=== PATIENT | male | born 1960 | race Caucasian/White ===

== ENCOUNTER 2018-05-06 10:41 | Day surgery (SDC) | payer BC ==
[~2018-05-06 10:41] MED LIST: CEFAZOLIN 2 Gram 2 GM/50 ML BAG IVPB ONE; CELECOXIB 100 MG CAPSULE PO ONE; FAMOTIDINE 20MG TABLET PO ONE; MECLIZINE 25 MG TABLET PO ONE; METOCLOPRAMIDE 10 MG TABLET PO ONE; VANCOMYCIN HCL 1,000 MG in DEXTROSE 5 % IN WATER 250 ML IVPB ONE
[2018-05-06] MEDS ORDERED: DEXAMETHASONE 4 MG/ML 1ML VIAL IVP ONE (10:42)
[2018-05-06] MEDS ORDERED: 0.9 % SODIUM CHLORIDE 10 ML VIAL IVP ONE (10:42)
[2018-05-06] MEDS ORDERED: PROPOFOL 10 MG/ML VIAL IV ONE (10:42)
[2018-05-06] MEDS ORDERED: TRANEXAMIC ACID 1,000 MG/10 ML ML IV ONE (10:42)
[2018-05-06] MEDS ORDERED: LIDOCAINE 2% MDV (20MG/ML) 20ML VIAL IV ONE (10:42)
[2018-05-06] MEDS ORDERED: KETOROLAC 30 MG/ML VIAL IVP ONE (10:42)
[2018-05-06] MEDS ORDERED: MORPHINE SULFATE 10 MG/ML VIAL IVP ONE (10:42)
[2018-05-06] MEDS ORDERED: TRANEXAMIC ACID 1,000 MG in 0.9 % SODIUM CHLORIDE 100ML 100 ML IV ONE (10:42)
[2018-05-06] MEDS ORDERED: FENTANYL PF 100MCG/2ML VIAL IV ONE (10:42)
[2018-05-06] MEDS ORDERED: MIDAZOLAM HCL 2MG/2ML VIAL IV ONE (10:42)
[2018-05-06] MEDS ORDERED: ROPIVACAINE HCL (NAROPIN) /PF 5MG/ML 20ML VIAL IV ONE (10:42)
[2018-05-06] MEDS ORDERED: BUPIVACAINE 0.5% W/EPI MPF 30 ML VIAL IVP ONE (10:42)
[2018-05-06] MEDS ORDERED: SUFENTANIL CITRATE 50 MCG/ML AMPUL IV ONE (10:42)
[2018-05-06] MEDS ORDERED: **ER** KETAMINE HCL 500MG/10ML VIAL IV ONE (10:42)
[2018-05-06 11:53] LABS: ABO GROUP O; RH TYPE NEGATIVE
[2018-05-06 11:54] LABS: ANTIBODY SCREEN NEGATIVE (NEGATIVE)
[2018-05-06] MEDS ORDERED: TRAMADOL HCL 50 MG TABLET PO PRN (14:45)
[2018-05-06] MEDS ORDERED: ACETAMINOPHEN 325 MG TAB PO PRN (14:45)
[2018-05-06] MEDS ORDERED: ONDANSETRON HCL IV 4 MG/2 ML VIAL IVP PRN (14:45)
[2018-05-06] MEDS ORDERED: ZOLPIDEM TARTRATE 5 MG TABLET PO PRN (14:45)
[2018-05-06] MEDS ORDERED: NALOXONE 0.4 MG/1 ML VIAL IVP PRN (14:45)
[2018-05-06] MEDS ORDERED: ACETAMINOPHEN W/ CODEINE 300MG/60MG TABLET PO PRN ×2 (14:45)
[2018-05-06] MEDS ORDERED: BISACODYL 10 MG SUPP RC PRN (14:45)
[2018-05-06] MEDS ORDERED: AL HYDROX/MAG HYDROX 30ML UD PO PRN (14:45)
[2018-05-06] MEDS ORDERED: DIPHENHYDRAMINE HCL 25 MG CAPSULE PO PRN (14:45)
[2018-05-06] MEDS ORDERED: MAGNESIUM HYDROXIDE 30 ML UDC PO PRN (14:45)
[2018-05-06] MEDS ORDERED: KETOROLAC 30 MG/ML VIAL IVP PRN ×2 (14:45)
[2018-05-06] MEDS ORDERED: HYDROMORPHONE HCL 2 MG/ML VIAL IM PRN (14:45)
[2018-05-06] MEDS ORDERED: HYDROCODONE/APAP 10/325 TABLET PO PRN (14:45)
[2018-05-06] MEDS ORDERED: TRIAMCINOLONE ACET 0.1% CREAM 15G TUBE TOP PRN (15:10)
[2018-05-06] MEDS ORDERED: DEXTROSE 5 % AND 0.9 % NACL 1,000 ML IV PRN (15:30)
[2018-05-06] MEDS: GABAPENTIN 100 MG CAPSULE PO SCH ×2 (16:40→21:29)
--- NOTE | 2018-05-06 18:05 | Rehab Evaluation ---
Patient Information - Patient Information Diagnosis: R knee OA Ordered Treatment: PT Evaluate and Treat Status: Initial Evaluation Surgery: Yes (R TKA) Date of Surgery: 05/06/18 Past Medical/Surgical Hx: PAST MEDICAL/SURGICAL HISTORY Past Surgical History gastric sleeve cardiac stents x's 3 2002 and 2005 right knee left knee scope x's 2 c scope PMH - Respiratory Hx Respiratory Disorders Yes Comment: sinus congestion ears congested PMH - Cardiovascular Hx Cardiovascular Disorders Yes Hx Abnormal EKG Yes Hx Cardiac Catheterization Yes Hx Deep Vein Thrombosis Yes: left knee after knee scope 10 yrs ago Hx Edema Yes: occassionally Hx Heart Attack Yes: x's 2 2002 and 2004 Hx Hypertension Yes: on meds good control Hx Irregular Heartbeat Yes: a fib on and off on eliquis, recently stopped drinking and this has helped Hx Palpitations Yes Hx Vascular Disease Yes: LE's Hx Coronary Artery Disease Yes Hx Coronary Stent Yes: x's 3 2002 and 2004 Exercise Tolerance Fair Comment: due to knee pain PMH - Neuro Hx Neurological Disorders Yes Hx Dizziness Yes: off balance when sinuses are congested Hx Headaches Yes: occassionally PMH - GI Hx Gastrointestinal Disorders Yes Hx Weight Loss/Weight Gain stable now. had 150 lb loss w sleeve 2-3 yrs ago Hx Cirrhosis Yes: possibly early stage of Cirrhosis PMH - Hx Genitourinary Disorders Yes Hx Kidney Stones Yes PMH - Endocrine Hx Endocrine Disorders Yes Hx Diabetes Yes: before sleeve no problems now A1C 4.7 PMH - Musculoskeletal Hx Musculoskeletal Disorders Yes Hx Arthritis Yes: right knee Hx Gout Yes: controlled with meds PMH - Psych Hx Psychiatric Problems Yes Hx Depression Yes: in past PMH - Hematology/Oncology Hx Hematology/Oncology Yes Disorders Hx Anemia Yes Hx Bruising Yes: on Eliquis Premorbid Status: Detail (The patient was independent with all mobility prior to surgery.) Social History: Detail (The patient lives alone in an apartment without stairs. The patient's bathroom is equipped with a walk in shower and a standard toilet, however patient states he is going to aquire a riser seat. The patient has a walker with wheels and crutches.) Precautions: [place], [place], Other (WBAT on the R LE) - Time With Patient Total Time Spent With Patient (Min): 30 Treatment Procedures: Detail (Initial Evaluation and Gait training) Subjective Information - Subjective Information Per Patient (The patient has no complaints of pain. The patient had some complaints of lightheadedness which is typical for him.) Objective Data - Mental Status Patient Orientation: Oriented x3 - Visual Perception Appears within normal limits for therapeutic activities - ROM Not within normal limits (The patient's R knee AROM is limited as to be expected following surgery. All other LE AROM is WNL.) - Strength/Tone Not within normal limits (The patient's R LE strength was not tested secondary to s/p, however strength is functional ie: patient is able to complete a SLR. All other LE strength is functional.) - Bed Mobility Independent (supine to and from sit and scooting.) - Transfers Independent (sit to and from stand transfer.) - Balance Balance Sitting: Good Balance Standing: Good - Sensation Intact - Gait Detail (The patient ambulated with front wheeled walker a distance of 40 feet x 1 WBAT on the R LE with supervision for safety only.) Therapy Assessment - Therapy Assessment Detail (The patient was independent with bed mobility, transfers and supervision only with ambulation. Feel patient will progress well with mobility. ) Problem List - Problem List Physical Therapy Problem List: Detail (Decreased R knee AROM and decreased R LE strength as to be expected following surgery.) Goals - Goals Physical Therapy Goals: 1) The patient will be independent with TKA HEP. 2) The patient will ambulate with front wheeled walker 100 feet independently. 3) The patient will be aware of proper technique of stair climbing Plan - Plan Physical Therapy Plan: PT for 1 -2 sessions for gait training and instruction in HEP.
[2018-05-06] MEDS: APIXABAN 5MG TABLET PO SCH (18:27)
[2018-05-06] MEDS: HYDROCODONE/APAP 10/325 TABLET PO PRN (20:13)
[2018-05-06] MEDS: DOCUSATE SODIUM 100 MG CAPSULE PO SCH (21:29)
[2018-05-06] MEDS: ALLOPURINOL 100 MG TAB PO SCH (21:29)
[2018-05-07] MEDS: HYDROCODONE/APAP 10/325 TABLET PO PRN ×3 (00:22→10:39)
[2018-05-07] MEDS ORDERED: VANCOMYCIN HCL 1,000 MG in DEXTROSE 5 % IN WATER 250 ML IVPB ONE ×2 (05:30)
[2018-05-07 06:36] LABS: HEMATOCRIT 35.8 % (42.0-52.0); HEMOGLOBIN 11.5 gm/dl (14.0-18.0)
[2018-05-07 06:47] LABS: BLOOD UREA NITROGEN 21 mg/dL (6-20); CREATININE 1.3 mg/dL (0.7-1.2); EST GLOMERULAR FILTRATION RATE > 60 mL/min; GLUCOSE,RANDOM 150 mg/dL (74-109)
--- NOTE | 2018-05-07 08:26 | Rehab Evaluation ---
Patient Information - Patient Information Diagnosis: R knee OA Ordered Treatment: OT Evaluate and Treat Status: Initial Evaluation Surgery: Yes (R TKA) Date of Surgery: 05/06/18 Past Medical/Surgical Hx: PAST MEDICAL/SURGICAL HISTORY Past Surgical History gastric sleeve cardiac stents x's 3 2002 and 2005 right knee left knee scope x's 2 c scope PMH - Respiratory Hx Respiratory Disorders Yes Comment: sinus congestion ears congested PMH - Cardiovascular Hx Cardiovascular Disorders Yes Hx Abnormal EKG Yes Hx Cardiac Catheterization Yes Hx Deep Vein Thrombosis Yes: left knee after knee scope 10 yrs ago Hx Edema Yes: occassionally Hx Heart Attack Yes: x's 2 2002 and 2004 Hx Hypertension Yes: on meds good control Hx Irregular Heartbeat Yes: a fib on and off on eliquis, recently stopped drinking and this has helped Hx Palpitations Yes Hx Vascular Disease Yes: LE's Hx Coronary Artery Disease Yes Hx Coronary Stent Yes: x's 3 2002 and 2004 Exercise Tolerance Fair Comment: due to knee pain PMH - Neuro Hx Neurological Disorders Yes Hx Dizziness Yes: off balance when sinuses are congested Hx Headaches Yes: occassionally PMH - GI Hx Gastrointestinal Disorders Yes Hx Weight Loss/Weight Gain stable now. had 150 lb loss w sleeve 2-3 yrs ago Hx Cirrhosis Yes: possibly early stage of Cirrhosis PMH - Hx Genitourinary Disorders Yes Hx Kidney Stones Yes PMH - Endocrine Hx Endocrine Disorders Yes Hx Diabetes Yes: before sleeve no problems now A1C 4.7 PMH - Musculoskeletal Hx Musculoskeletal Disorders Yes Hx Arthritis Yes: right knee Hx Gout Yes: controlled with meds PMH - Psych Hx Psychiatric Problems Yes Hx Depression Yes: in past PMH - Hematology/Oncology Hx Hematology/Oncology Yes Disorders Hx Anemia Yes Hx Bruising Yes: on Eliquis Premorbid Status: Detail (The patient was independent with all mobility, ADLs and IADLs prior to surgery. His brother is able to help if needed but he does not live close by.) Social History: Detail (The patient lives alone in a first floor apartment without stairs. The patient's bathroom is equipped with a walk in shower and a standard toilet, however patient states he is going to acquire a riser seat and shower seat. The patient has a walker with wheels and crutches.) Precautions: [place], Fall, Other (WBAT on the R LE) - Time With Patient Total Time Spent With Patient (Min): 40 Treatment Procedures: Detail (OT eval low complexity) Subjective Information - Subjective Information Per Patient Objective Data - Pain Pain Present: Yes (3-10/22) - Mental Status Patient Orientation: Oriented x3 - Visual Perception Appears within normal limits for therapeutic activities - ROM Within normal limits (Imtiaz UE AROM WNL) - Strength/Tone Within normal limits (Imtiaz UE strength WNL) - Coordination Appears within normal limits for therapeutic activities - Bed Mobility Independent (Ind with supine to sit) - Transfers Independent (Ind with sit to stand from EOB) - Balance Balance Sitting: Good Balance Standing: Good - Sensation Intact - Gait Detail (Pt ambulating in room with 2 wheeled walker Indly.) - ADL's/IADL's Detail (Pt educated and able to demonstrate learning of modified LE dressing techniques including doffing slipper socks and donning pants, socks and tennis shoes. Pt educated and verbalized learning of kitchen and shower safety and modifications as well as technique for donning jhoan socks.) Therapy Assessment - Therapy Assessment Detail (Pt is Ind with modified techniques for LE dressing.) Problem List - Problem List Physical Therapy Problem List: Detail (Decreased R knee AROM and decreased R LE strength as to be expected following surgery.) Occupational Therapy Problem List: Detail (No current IP OT problems identified. ) Goals - Goals Physical Therapy Goals: 1) The patient will be independent with TKA HEP. 2) The patient will ambulate with front wheeled walker 100 feet independently. 3) The patient will be aware of proper technique of stair climbing Occupational Therapy Goals: No current IP OT goals identified. Prognosis - Prognosis Good Plan - Plan Physical Therapy Plan: PT for 1 -2 sessions for gait training and instruction in HEP. Occupational Therapy Plan: No further IP OT recommended. Thank you for this referral.
[2018-05-07] MEDS: DOCUSATE SODIUM 100 MG CAPSULE PO SCH (09:33)
[2018-05-07] MEDS: APIXABAN 5MG TABLET PO SCH (09:34)
[2018-05-07] MEDS: GABAPENTIN 100 MG CAPSULE PO SCH (09:35)
[2018-05-07] MEDS: ALLOPURINOL 100 MG TAB PO SCH (09:36)
[2018-05-07] MEDS ORDERED: MULTIVITAMINS/MINERALS TABLET PO SCH (10:00)
[2018-05-07] MEDS ORDERED: THIAMINE MONONITRATE 100 MG TABLET PO SCH (10:00)
[2018-05-07] MEDS ORDERED: FOLIC ACID 1 MG TABLET PO SCH (10:00)
[2018-05-07] MEDS ORDERED: ASPIRIN 81 MG TABEC PO SCH (10:00)
[2018-05-07] MEDS ORDERED: LISINOPRIL 20 MG TABLET PO SCH (10:00)
[2018-05-07] MEDS ORDERED: METOPROLOL SUCC 50 MG TABLET PO SCH (10:00)
[2018-05-07] MEDS ORDERED: FERROUS SULFATE 325 MG TAB PO SCH (10:00)
--- NOTE | 2018-05-07 11:33 | Physical Therapy Tx Note ---
Physical Therapy Tx Note - Treatment Note Tolerated: Good Total Time Spent With Patient: 15 Physical Therapy Tx Note: Detail (The patient was in bed and declined stairs. The patient has no stairs to climb to his apt. The patient was able to verbalize the proper technique of stair climbing. The patient declined to ambulate this am, stating he had just ambulated with nursing staff. The patient demonstrated safe ambulation technique on 05/06/18. The patient complete the following TKA exercises: supine heel slides, ankle pumps, quad sets, gluteal sets, hamstring sets, SLR. The patient is discharged from inpatient PT and is to continue with Home PT.) Physical Therapy Problem List: Detail (Decreased R knee AROM and decreased R LE strength as to be expected following surgery.) Physical Therapy Goals: GOALS MET: 1) The patient will be independent with TKA HEP. 2) The patient will ambulate with front wheeled walker 100 feet independently. 3) The patient will be aware of proper technique of stair climbing Physical Therapy Plan: Patient is discharged from inpatient PT and is to continue with Home PT.
--- NOTE | 2018-05-07 16:30 | Operative Note ---
DATE OF SERVICE: 05/06/2018. DATE OF SURGERY: 05/06/2018. PREOPERATIVE DIAGNOSIS: End-stage arthrosis of the right knee. POSTOPERATIVE DIAGNOSIS: End-stage arthrosis of the right knee. OPERATION: Cemented right total knee arthroplasty using [employer] Do II components, with a size 7 Oxinium femur, a size 7 stemmed tibial baseplate, a 9 mm lipped tibial insert, and a 35 mm all plastic patella. Staff Surgeon: Vladislav Rodriges MD. Anesthesia: General. PREPARATION: ChloraPrep. INDIVIDUAL CONSIDERATIONS: None. PROCEDURE: Patient was taken to the operating room, placed supine on the operating table. He had successful induction with general anesthetic. His right lower extremity was prepped and draped in the usual fashion.Patient had a midline approach to the knee. Limb was elevated. Tourniquet was inflated to 250 mmHg. Sharp dissection carried down through skin and subcutaneous tissue. Small veins were coagulated with a Bovie. A medial arthrotomy was performed, patella was everted, and knee was flexed. He had exposed bone in the medial and patellofemoral compartments with large osteophytes Fat pad was resected, ACL was sacrificed, provisional anterior meniscectomy was performed, and the capsule was released from the medial proximal tibia. The initial femoral commercial pilot hole was then made freehand. The intramedullary femoral cutting jig was placed. It was cut in 7.0 degrees of valgus and adjusted for rotation and secured with pins for a 10 mm resection. The initial transverse cut was then made. Skid guide was placed for the anterior and posterior commercial pilot holes. It was found that a size 7 would be appropriate. The anterior and posterior cuts, followed by chamfer cuts were made, osteophytes were removed, and a size 7 trial was placed and found to fit well. Tibia was brought forward, and remainder of the meniscal remnants were removed with a Bovie. The extraarticular tibial cutting jig was placed. It was cut in neutral with a 3 degree AP slope. It was set for a 9 mm resection keyed off the high lateral side, secured with pins. When cutting the tibia, care was taken to adjust for rotation and to preserve the PCL insertion on the tibia. After cutting the tibia, large osteophytes were removed, and it was found that a size 7 would be appropriate. This was adjusted for rotation and secured with pins. With the 9 mm trial, which was lipped, and the femoral trial, there were excellent motion and stability. Ligamentous balance and rotational alignment were thought to be normal. The femoral commercial pilot holes were then impacted, and then the tibial keel stamp was impacted, and these trial components were removed. Patient had a very thick patella, and roughly 9 mm of bone were removed freehand, and I was easily able to fit a 35 patella, and the 3 commercial pilot holes were then drilled. The tourniquet was let down briefly to get bleeders posteriorly, then placed back up again. After thorough pulsatile Betadine and saline irrigation, the bony surfaces were dried. A size 7 stemmed tibial baseplate was cemented into place, followed by impaction of the 9 mm lipped tibial insert, followed by cementing in the size 7 Oxinium femur, followed by cementing of the 35 mm patella. Implant surfaces were compressed, excess cement was removed, and after the cement had set, there were excellent motion and stability. Ligamentous balance, rotational alignment, and patellofemoral tracking were normal. No lateral release was required. The tourniquet was let down. Hemostasis was obtained with a Bovie. The capsule was then closed with a running #2 Quill. Subcu was closed in layers with running 0 Quill. Skin was closed with jeannette. I did infiltrate the skin and subcutaneous tissue and periosteum with 30 mL of 0.5% Marcaine with epinephrine prior to closure, and after closure I injected the knee with 30 mL of saline mixed with 1 g of tranexamic acid. Patient did receive 1 g of tranexamic acid IV preop. Patient tolerated the procedure well. Needle and sponge counts were correct. Estimated blood loss was minimal, and he was taken back to recovery in fair condition. There were no complications. [facility]
== END 2018-05-07 14:14 | disposition home health service (06) ==
LOC: SUR 10:41 → MEDSURG 15:46 → SUR 05-07 14:14
PROVIDERS: ATTEND Orthopaedic Surgery
DX: M17.11 Unilateral primary osteoarthritis, right knee (principal); I10 Essential (primary) hypertension; I48.91 Unspecified atrial fibrillation; Z79.01 Long term (current) use of anticoagulants; I25.10 Atherosclerotic heart disease of native coronary artery without angina pectoris; I25.2 Old myocardial infarction; K70.30 Alcoholic cirrhosis of liver without ascites; Z86.718 Personal history of other venous thrombosis and embolism
CPT/HCPCS: 27447; 01402; 64447; 85018; 85014; 80048; 86900; 86901; 86850; 93005; J1885 ×2; J3370; J3010; J0690; J3490 ×4; J2795; J2270; G8978; G8979 ×2; G8980; G8987; G8988; G8989; 76942; 97110; J7042; J7060

== ENCOUNTER 2018-06-24 06:54 | Day surgery (SDC) | payer BC ==
[2018-06-24] MEDS ORDERED: 0.9 % SODIUM CHLORIDE 10 ML VIAL IVP ONE (06:55)
[2018-06-24] MEDS ORDERED: SUFENTANIL CITRATE 50 MCG/ML AMPUL IV ONE (06:55)
[2018-06-24] MEDS ORDERED: LIDOCAINE 2% MDV (20MG/ML) 20ML VIAL IV ONE (06:55)
[2018-06-24] MEDS ORDERED: ONDANSETRON HCL IV 4 MG/2 ML VIAL IVP ONE (06:55)
[2018-06-24] MEDS ORDERED: SEVOFLURANE 250 ML INH ONE (06:55)
[2018-06-24] MEDS ORDERED: MIDAZOLAM HCL 2MG/2ML VIAL IV ONE (06:55)
[2018-06-24] MEDS ORDERED: BUPIVACAINE 0.5% W/EPI MPF 30 ML VIAL IVP ONE (06:55)
[2018-06-24] MEDS ORDERED: KETOROLAC 30 MG/ML VIAL IVP ONE (06:55)
[2018-06-24] MEDS ORDERED: PROPOFOL 10 MG/ML VIAL IV ONE (06:55)
[2018-06-24] MEDS ORDERED: TRANEXAMIC ACID 1,000 MG/10 ML ML IV ONE (06:55)
[2018-06-24] MEDS ORDERED: HYDROMORPHONE HCL 2 MG/ML VIAL IV ONE (06:55)
[2018-06-24 08:10] LABS: ABO GROUP O; ANTIBODY SCREEN NEGATIVE (NEGATIVE); RH TYPE NEGATIVE
[2018-06-24] MEDS ORDERED: ACETAMINOPHEN W/ CODEINE 300MG/60MG TABLET PO PRN ×2 (11:09)
[2018-06-24] MEDS ORDERED: KETOROLAC 30 MG/ML VIAL IVP PRN ×2 (11:09)
[2018-06-24] MEDS ORDERED: ZOLPIDEM TARTRATE 5 MG TABLET PO PRN (11:09)
[2018-06-24] MEDS ORDERED: HYDROCODONE/APAP 10/325 TABLET PO PRN (11:09)
[2018-06-24] MEDS ORDERED: BISACODYL 10 MG SUPP RC PRN (11:09)
[2018-06-24] MEDS ORDERED: MAGNESIUM HYDROXIDE 30 ML UDC PO PRN (11:09)
[2018-06-24] MEDS ORDERED: ACETAMINOPHEN 325 MG TAB PO PRN (11:09)
[2018-06-24] MEDS ORDERED: AL HYDROX/MAG HYDROX 30ML UD PO PRN (11:09)
[2018-06-24] MEDS ORDERED: DIPHENHYDRAMINE HCL 25 MG CAPSULE PO PRN (11:09)
[2018-06-24] MEDS ORDERED: ONDANSETRON HCL IV 4 MG/2 ML VIAL IVP PRN (11:09)
[2018-06-24] MEDS ORDERED: HYDROMORPHONE HCL 2 MG/ML VIAL IM PRN (11:09)
[2018-06-24] MEDS ORDERED: NALOXONE 0.4 MG/1 ML VIAL IVP PRN (11:09)
[2018-06-24] MEDS ORDERED: TRIAMCINOLONE ACET 0.1% CREAM 15G TUBE TOP PRN (12:16)
--- NOTE | 2018-06-24 14:10 | Rehab Evaluation ---
Patient Information - Patient Information Diagnosis: L knee OA Ordered Treatment: PT Evaluate and Treat Status: Initial Evaluation Surgery: Yes (L TKA) Date of Surgery: 06/24/18 Past Medical/Surgical Hx: PAST MEDICAL/SURGICAL HISTORY Past Surgical History RTKA 05-06-18 gastric sleeve cardiac stents x's 3 2002 and 2005 right knee left knee scope x's 2 c scope PMH - Respiratory Hx Respiratory Disorders Yes Comment: sinus congestion ears congested PMH - Cardiovascular Hx Cardiovascular Disorders Yes Hx Abnormal EKG Yes Hx Cardiac Catheterization Yes Hx Deep Vein Thrombosis Yes: left knee after knee scope 10 yrs ago Hx Edema Yes: occassionally Hx Heart Attack Yes: x's 2 2002 and 2004 Hx Hypertension Yes: on meds good control Hx Irregular Heartbeat Yes: a fib on and off on eliquis, recently stopped drinking and this has helped Hx Palpitations Yes Hx Vascular Disease Yes: LE's Hx Coronary Artery Disease Yes Hx Coronary Stent Yes: x's 3 2002 and 2004 Exercise Tolerance Fair Comment: due to knee pain PMH - Neuro Hx Neurological Disorders Yes Hx Dizziness Yes: off balance when sinuses are congested Hx Headaches Yes: occassionally PMH - GI Hx Gastrointestinal Disorders Yes Hx Weight Loss/Weight Gain stable now. had 150 lb loss w sleeve 2-3 yrs ago Hx Cirrhosis Yes: possibly early stage of Cirrhosis PMH - Hx Genitourinary Disorders Yes Hx Kidney Stones Yes PMH - Endocrine Hx Endocrine Disorders Yes Hx Diabetes Yes: before sleeve no problems now A1C 4.7 PMH - Musculoskeletal Hx Musculoskeletal Disorders Yes Hx Arthritis Yes: left knee Hx Gout Yes: controlled with meds PMH - Psych Hx Psychiatric Problems Yes Hx Depression Yes: in past PMH - Hematology/Oncology Hx Hematology/Oncology Yes Disorders Hx Anemia Yes Hx Bruising Yes: on Eliquis Premorbid Status: Detail (The patient was independent with mobility prior to surgery.) Social History: Detail (The patient lives alone in a first floor apartment with no steps. The patient's bathroom is equipped with a walk in shower and a standard height toilet with riser seat. The patient has a front wheeled walker and standard cane.) Precautions: [place], Fall, Other (WBAT on the L LE.) - Time With Patient Total Time Spent With Patient (Min): 30 Treatment Procedures: Detail (Initial Evaluation and gait training) Subjective Information - Subjective Information Per Patient (The patient has no complaints but complains of pressure.) Objective Data - Mental Status Patient Orientation: Oriented x3 - Visual Perception Appears within normal limits for therapeutic activities - ROM Not within normal limits (The patient's L knee AROM is limited as to be expected following TKA surgery. All other AROM is WNL.) - Strength/Tone Not within normal limits (The patient's L LE strength was not tested secondary to s/p surgery however strength was functional ie: the patient was able to complete a SLR. The patient's R LE strength was functional.) - Bed Mobility Independent (The patient was independent with supine to and from sit transfer.) - Transfers Independent (The patient was independent with sit to and from stand transfer.) - Balance Balance Sitting: Good Balance Standing: Good - Gait Detail (The patient ambulated with front wheeled walker WBAT on L LE a distance of 48 feet x 1 with CG/supervision of 1 for safety only.) Therapy Assessment - Therapy Assessment Detail (The patient was independent with bed mobility and transfers and required supervision for safety only. Feel the patient will progress well with mobility.) Problem List - Problem List Physical Therapy Problem List: Detail (1) Decreased L knee AROM 2) Decreased L LE strength) Goals - Goals Physical Therapy Goals: 1) The patient will be independent with TKA HEP. 2) The patient will demonstrate good understanding of proper stair climbing technique
[2018-06-24] MEDS: HYDROCODONE/APAP 10/325 TABLET PO PRN ×2 (16:48→20:56)
[2018-06-24] MEDS: GABAPENTIN 100 MG CAPSULE PO SCH ×2 (16:48→21:29)
[2018-06-24] MEDS: CEFAZOLIN 2 Gram 2 GM/50 ML BAG IVPB SCH (16:51)
[2018-06-24] MEDS: ALLOPURINOL 100 MG TAB PO SCH (21:29)
[2018-06-24] MEDS: APIXABAN 5MG TABLET PO SCH (21:29)
[2018-06-24] MEDS: VANCOMYCIN HCL 1,000 MG in DEXTROSE 5 % IN WATER 250 ML IVPB SCH ×2 (21:30)
[2018-06-24] MEDS: DOCUSATE SODIUM 100 MG CAPSULE PO SCH (21:30)
[2018-06-24] MEDS: POTASSIUM CHLORIDE/D5-0.9%NACL 20 MEQ/1,000 ML BAG IV SCH ×2 (23:52→23:55)
[2018-06-25] MEDS: CEFAZOLIN 2 Gram 2 GM/50 ML BAG IVPB SCH ×2 (01:20→10:58)
[2018-06-25] MEDS: HYDROCODONE/APAP 10/325 TABLET PO PRN ×4 (01:29→14:15)
[2018-06-25 06:36] LABS: HEMATOCRIT 31.8 % (42.0-52.0)
[2018-06-25 06:51] LABS: BLOOD UREA NITROGEN 15 mg/dL (6-20); CREATININE 0.9 mg/dL (0.7-1.2); EST GLOMERULAR FILTRATION RATE > 60 mL/min; GLUCOSE,RANDOM 138 mg/dL (74-109)
--- NOTE | 2018-06-25 08:13 | Rehab Evaluation ---
Patient Information - Patient Information Diagnosis: L knee OA Ordered Treatment: OT Evaluate and Treat Status: Initial Evaluation Surgery: Yes (L TKA) Date of Surgery: 06/24/18 Past Medical/Surgical Hx: PAST MEDICAL/SURGICAL HISTORY Past Surgical History RTKA 05-06-18 gastric sleeve cardiac stents x's 3 2002 and 2005 right knee left knee scope x's 2 c scope PMH - Respiratory Hx Respiratory Disorders Yes Comment: sinus congestion ears congested PMH - Cardiovascular Hx Cardiovascular Disorders Yes Hx Abnormal EKG Yes Hx Cardiac Catheterization Yes Hx Deep Vein Thrombosis Yes: left knee after knee scope 10 yrs ago Hx Edema Yes: occassionally Hx Heart Attack Yes: x's 2 2002 and 2004 Hx Hypertension Yes: on meds good control Hx Irregular Heartbeat Yes: a fib on and off on eliquis, recently stopped drinking and this has helped Hx Palpitations Yes Hx Vascular Disease Yes: LE's Hx Coronary Artery Disease Yes Hx Coronary Stent Yes: x's 3 2002 and 2004 Exercise Tolerance Fair Comment: due to knee pain PMH - Neuro Hx Neurological Disorders Yes Hx Dizziness Yes: off balance when sinuses are congested Hx Headaches Yes: occassionally PMH - GI Hx Gastrointestinal Disorders Yes Hx Weight Loss/Weight Gain stable now. had 150 lb loss w sleeve 2-3 yrs ago Hx Cirrhosis Yes: possibly early stage of Cirrhosis PMH - Hx Genitourinary Disorders Yes Hx Kidney Stones Yes PMH - Endocrine Hx Endocrine Disorders Yes Hx Diabetes Yes: before sleeve no problems now A1C 4.7 PMH - Musculoskeletal Hx Musculoskeletal Disorders Yes Hx Arthritis Yes: left knee Hx Gout Yes: controlled with meds PMH - Psych Hx Psychiatric Problems Yes Hx Depression Yes: in past PMH - Hematology/Oncology Hx Hematology/Oncology Yes Disorders Hx Anemia Yes Hx Bruising Yes: on Eliquis Premorbid Status: Detail (The patient was independent with mobility, home mgmt, meal prep and laundry prior to surgery.) Social History: Detail (The patient lives alone in a first floor apartment with no steps. The patient's bathroom is equipped with a walk in shower and a standard height toilet with riser seat. The patient has a front wheeled walker and standard cane.) Precautions: [place], Fall, Other (WBAT on the L LE.) - Time With Patient Total Time Spent With Patient (Min): 45 Treatment Procedures: Detail (OT eval low complexity) Subjective Information - Subjective Information Per Patient Objective Data - Pain Pain Present: Yes (11/21) - Mental Status Patient Orientation: Oriented x3 - Visual Perception Appears within normal limits for therapeutic activities - ROM Within normal limits (Imtiaz UE AROM WNL) - Strength/Tone Within normal limits (Imtiaz UE strength WNL) - Coordination Appears within normal limits for therapeutic activities - Bed Mobility Independent (Ind with supine to sit and sit to supine) - Transfers Independent (Ind with sit to stand from EOB) - Balance Balance Sitting: Good Balance Standing: Good - Sensation Intact - ADL's/IADL's Detail (Reviewed modified LE dressing techniques and pt able to demonstrate Ind with doffing slipper socks and donning pants, socks and tennis shoes. Reviewed kitchen and shower safety and modifications, pt verbalizes understanding.) Therapy Assessment - Therapy Assessment Detail (Pt is Ind with modified LE dressing techniques) Problem List - Problem List Physical Therapy Problem List: Detail (1) Decreased L knee AROM 2) Decreased L LE strength) Occupational Therapy Problem List: Detail (No current IP OT problems identified. ) Goals - Goals Physical Therapy Goals: 1) The patient will be independent with TKA HEP. 2) The patient will demonstrate good understanding of proper stair climbing technique Occupational Therapy Goals: No current IP OT goals identified. Prognosis - Prognosis Good Plan - Plan Occupational Therapy Plan: No further IP OT recommended. Thank you for this referral.
[2018-06-25] MEDS: POTASSIUM CHLORIDE/D5-0.9%NACL 20 MEQ/1,000 ML BAG IV SCH ×2 (08:57→12:11)
[2018-06-25] MEDS: VANCOMYCIN HCL 1,000 MG in DEXTROSE 5 % IN WATER 250 ML IVPB SCH ×2 (09:01)
[2018-06-25] MEDS: DOCUSATE SODIUM 100 MG CAPSULE PO SCH (09:04)
[2018-06-25] MEDS: ALLOPURINOL 100 MG TAB PO SCH (09:04)
[2018-06-25] MEDS: APIXABAN 5MG TABLET PO SCH (09:04)
[2018-06-25] MEDS: GABAPENTIN 100 MG CAPSULE PO SCH (09:04)
[2018-06-25] MEDS ORDERED: FERROUS SULFATE 325 MG TAB PO SCH (10:00)
[2018-06-25] MEDS ORDERED: ASPIRIN 81 MG TABEC PO SCH (10:00)
[2018-06-25] MEDS ORDERED: METOPROLOL SUCC 50 MG TABLET PO SCH (10:00)
[2018-06-25] MEDS ORDERED: LISINOPRIL 20 MG TABLET PO SCH (10:00)
[2018-06-25] MEDS ORDERED: MULTIVITAMINS/MINERALS TABLET PO SCH (10:00)
--- NOTE | 2018-06-25 10:42 | Physical Therapy Tx Note ---
Physical Therapy Tx Note - Treatment Note Tolerated: Good Total Time Spent With Patient: 20 Physical Therapy Tx Note: Detail (The patient was painful this am. The patient reported he ambulated in the [place] this am. The patient was able to relate the proper stair climbing technique. The patient declined stairs since he does not have stairs at home. The patient completed the folllowing TKA exercise program included: heel slides, gluteal sets, quad sets, hamstring sets, SLR and ankle pumps. The patient has met all inpatient goals and is discharged from inpatient PT.) Physical Therapy Problem List: Detail (1) Decreased L knee AROM 2) Decreased L LE strength) Physical Therapy Goals: 1) The patient will be independent with TKA HEP (Goal Met). 2) The patient will demonstrate good understanding of proper stair climbing technique (Goal Met) Physical Therapy Plan: The patient is discharged from inpatient PT and is to continue with Home Therapy.
--- NOTE | 2018-06-25 15:10 | Operative Note ---
DATE OF SURGERY: 06/24/2018 PREOPERATIVE DIAGNOSIS: Profound end-stage arthrosis of left knee. POSTOPERATIVE DIAGNOSIS: Profound end-stage arthrosis of left knee. OPERATION: Cemented left total knee arthroplasty using [employer] components with a size 7 Oxinium femur, a size 7 stem tibia baseplate, a 9 mm lipped highly crosslinked tibial insert, and a 35 mm all plastic patella. Staff Surgeon: Vladislav Rodriges MD Anesthesia: General. PREPARATION: Chloraprep. INDIVIDUAL CONSIDERATIONS: None. PROCEDURE: The patient was taken to the operating room, placed supine on the operating room table. He had a successful induction of general anesthetic. The left lower extremity was prepped and draped in the usual fashion. The limb was elevated and tourniquet was inflated to 250 mmHg. The patient had a midline approach to the knee. Sharp dissection carried down through skin and subcutaneous tissue. Small veins were coagulated with a Bovie. A medial arthrotomy was performed. The patella was everted and the knee was flexed. He had profound arthritic changes medially, bone loss with [id number] contact and even in the patellofemoral compartment and some changes laterally. Fat pad was resected, ACL was not present. Provisional anterior meniscectomies were performed, and the capsule was released from the medial proximal tibia. The initial femoral airplane pilot hole was then made freehand. The intramedullary femoral cutting jig was placed. It was cut in 7.0 degrees of valgus and adjusted for rotation and secured with pins for a 10 mm resection. The initial transverse cut was then made. The skin guide was placed in the anterior and posterior airplane pilot holes. It was found that a size 7 would be appropriate but I needed to translate it anteriorly 2 mm. The anterior and posterior cuts followed by chamfer cuts were made. Large osteophytes removed, and a size 7 trial was placed and found to fit well. The tibia was brought forward, and the remainder of the meniscal remnants removed with a Bovie. The extraarticular tibial cutting jig was placed. It was cut in neutral with a 3-degree AP slope. Care was taken to adjust for rotation and flexion using the extraarticular alignment guide and bony landmarks. It was set for a 9 mm resection keyed off the high lateral side and secured with pins. When cutting the tibia, care was taken to preserve the PCL insertion on the tibia. After making the cut, huge medial osteophytes and some lateral osteophytes were removed. I was able to fit a size 7. It was adjusted for rotation and secured with pins. With an 11 mm trial and femoral trial, there was excellent motion and stability, ligamentous balance, rotation alignment were thought to be normal. The femoral airplane pilot holes were impacted and the tibial keel impaction was made, and these components were removed. The patient had a thick patella. Roughly 9 mm of bone was removed freehand and I easily was able to fit a 35 patella. The 3 airplane pilot holes were drilled. The tourniquet was let down briefly to get bleeders posteriorly and placed back up again. The knee was then thoroughly irrigated out with pulsatile Betadine and saline to remove any visual or palpable debris. Bony surfaces were then dried. A size 7 stem tibia baseplate was cemented into place followed by impaction of the 11 mm lipped tibial insert followed by cementing in the size 7 Oxinium femur followed by cementing in the 35 mm patella. The implant surfaces were compressed, excess cement was removed, and after the cement had set, there was excellent motion and stability, ligamentous balance, rotation alignment, and patellofemoral tracking were normal. No lateral release was required. Again thorough irrigation. Tourniquet was let down. Hemostasis was obtained with a Bovie. The capsule was then closed with a running #2 quill, subcu was closed in layers with running 0 quill, skin was closed with jeannette. Prior to closure, I did infiltrate the skin and subcutaneous tissue and periosteum with 30 mL of 0.5% Marcaine with epinephrine. After closure, I mixed 1 g of tranexamic acid with 30 mL of saline and injected into the knee through a sterile 18-gauge needle. A sterile bulky compressive NEGRO-type dressing was applied. The patient tolerated the procedure well. Needle and sponge counts were correct. Estimated blood loss was minimal, and he was taken back to recovery in good condition. There were no complications. CARLEEN
== END 2018-06-25 14:45 | disposition home health service (06) ==
LOC: SUR 06:54 → MEDSURG 11:43 → SUR 06-25 14:45
PROVIDERS: ATTEND Orthopaedic Surgery
DX: M17.12 Unilateral primary osteoarthritis, left knee (principal); I48.2 Chronic atrial fibrillation; I10 Essential (primary) hypertension
CPT/HCPCS: 76942; 80048; 85014; 85018; 86850; 86900; 86901; 97110; J1885; J2405; J3480; J7060